=== PATIENT | male | born 1975 | race Caucasian/White ===

== ENCOUNTER 2020-02-28 06:17 | Day surgery (SDC) | payer OTHER ==
[2020-02-24 12:49] VITALS: BMI 44.0
--- NOTE | 2020-02-27 22:56 | HP ---
HISTORY OF PRESENT ILLNESS: Mr. Mejia is a pleasant 44-year-old man, who is referred to us via a personal friend for evaluation of lower back pain and left lower extremity pain. The best combination of both the S1 with some L5 pattern. His history is significant for disk herniation at L5 some five years ago. He was having a footdrop and pain to the right lower extremities. Diskectomy was performed, but his footdrop never improved. He has had subsequent peripheral nerve procedure as well without much improvement. He wears ankle-foot orthosis at all times. He has had new left lower extremity pain since the end of last year and they caused some great distress, particularly in the evening. He works very physical job which also hampers his work. He has seen an orthopedic surgeon at [facility], who recommended L5-S1 fusion recently and hopes to obtain second opinion. MRI from [facility] from June 2019 reveals recurrent disk herniations at L5 imposing significant lateral recess stenosis bilaterally compressing both S1 nerve roots. He also has severe foraminal stenosis at L4, mostly to the right. PHYSICAL EXAMINATION: Patient is alert and oriented x3. Gait is slowed and severely antalgic. Lower extremity motor exam reveals 5/5 in all movements of the left lower extremity, 5/5 movements all the right other than the plantar dorsiflexion which dorsiflexion being 2/5, plantar flexion being 4/5. PAST MEDICAL HISTORY: Includes hypertension. CURRENT MEDICATIONS: 1. Gabapentin. 2. Lisinopril. 3. Naproxen. 4. Tylenol. ALLERGIES: NO KNOWN DRUG ALLERGIES. PAST SURGICAL HISTORY: Lumbar diskectomy, left knee meniscectomy, total reconstruction of right ankle. ASSESSMENT: Lumbar radiculopathy. PLAN: Dr. Quevedo met with the patient, reviewed imaging, advocated for bilateral L4 foraminotomies and L5-S1 decompression. He explained to the patient the risks, benefits, and alternatives to the procedure. Patient expressed understanding and elected to move forward with surgery as discussed. I do believe the patient is mentally competent and capable of making medical decisions for himself. We will move forward with surgery as planned. Job ID: [id number]
[2020-02-28] MEDS ORDERED: EPINEPHrine 1 MG/ML AMP ONE (06:29)
[2020-02-28] MEDS ORDERED: Bupivacaine PF 0.5% 30 ML VIAL ONE (06:29)
[2020-02-28] MEDS ORDERED: Midazolam HCl 2 mg/2 ml Vial ONE (06:30)
[2020-02-28] MEDS ORDERED: Thrombin 5000 UNITS/5 ML VIAL ONE (06:30)
[2020-02-28] MEDS ORDERED: Fentanyl 100 MCG/2 ML VIAL ONE ×2 (06:30→09:15)
[2020-02-28] MEDS ORDERED: HYDROmorphone 0.5 MG/0.5 ML SYRINGE ONE ×2 (09:11→09:40)
[2020-02-28] MEDS ORDERED: Tamsulosin HCl 0.4 MG CAP ONE (09:15)
[2020-02-28] MEDS ORDERED: Dexamethasone 20 MG/5 ML VIAL ONE (09:26)
[2020-02-28] MEDS ORDERED: EPHEDRINE 25 MG/5 ML SYRINGE ONE (09:26)
[2020-02-28] MEDS ORDERED: Rocuronium Bromide 10 MG/ML (10ML VIAL) ONE (09:26)
[2020-02-28] MEDS ORDERED: Ondansetron PF 4 MG/2 ML Vial ONE (09:26)
[2020-02-28] MEDS ORDERED: PROPOFOL 200 MG/20 ML VIAL ONE (09:26)
[2020-02-28] MEDS ORDERED: Ketorolac Tromethamine 30 MG/ML VIAL ONE (09:26)
[2020-02-28] MEDS ORDERED: Glycopyrrolate 0.2 MG/ML 5 ML SYRINGE ONE (09:26)
[2020-02-28] MEDS ORDERED: Lidocaine 1% PF 5 ML VIAL ONE (09:26)
[2020-02-28] MEDS ORDERED: PHENYLEPHRINE-NS 100 MCG/ML 10 ML SYRINGE ONE (09:26)
[2020-02-28] MEDS ORDERED: Cyclobenzaprine 10 MG TAB ONE (09:33)
--- NOTE | 2020-02-28 11:53 | OP ---
DATE OF PROCEDURE: 02/28/2020 QUANTITATIVE EQUITY HEAD: Tmimy Cast PA-C INDICATION: Pain. DIAGNOSIS: Lumbar stenosis and lumbar radiculopathy. PROCEDURES PERFORMED: Reoperation L4-S1 decompression, right and left L4 foraminotomy. ANESTHESIA: General. DESCRIPTION OF PROCEDURE: The patient was brought into the operating room and placed under general anesthesia. He was flipped from the supine to prone position on the operating room table. A linear incision was planned, which incorporated a portion of a prior incision. After prepping and draping and after an appropriate preoperative pause, the incision was created. The soft tissues were swept away from midline. Self-retaining retractors were placed in the wound for optimal exposure. After confirming the appropriate level with C-arm fluoroscopy, high-speed cutting drill was used to perform a laminectomy spanning all of L5, the superior aspect of S1, and the inferior aspect of L4. There was a bone defect in the right at the L5-S1 interface consistent with the patient's prior operation. After completely decompressing the central canal spanning along midportion of L4 to the top of S1, generous foraminotomies were performed more so on the right than on the left given the findings on the MRI scan in order to decompress the exiting L4 nerve roots. After completing the decompression, the wound was irrigated. Hemostasis was maintained throughout. The wound was then closed in anatomic layers, and a pressure dressing was applied. There were no known procedural complications. Job ID: [id number]
== END 2020-02-28 12:05 | disposition home or self-care (01) ==
LOC: SDC 06:17
PROVIDERS: ATTEND Neurological Surgery
PROC: 01NB0ZZ Release Lumbar Nerve, Open Approach (ICD-10-PCS; principal; 2020-02-28)
DX: M48.061 Spinal stenosis, lumbar region without neurogenic claudication (principal); M51.16 Intervertebral disc disorders with radiculopathy, lumbar region; I10 Essential (primary) hypertension; Z79.899 Other long term (current) drug therapy; Z98.890 Other specified postprocedural states
CPT/HCPCS: 76000; J0171; J0690; J1100; J1170; J1885; J2250; J2405; J2704; J3010; S0020